=== PATIENT | male | born 1985 | race Caucasian/White ===

== ENCOUNTER 2023-03-29 13:09 | Emergency (ER) | payer OTHER, SELFPAY ==
[2023-03-29 13:54] LABS: #Eosinphils 0.1 10x3/uL (0.0-0.5); #Monocytes 0.5 10x3/uL (0.0-1.1); #Neutrophils 3.6 10x3/uL (1.5-8.4); %Basophils 0.6 % (0.0-2.0); %Eosinophils 1.2 % (0.0-6.0); %Lymphocytes 18.6 % (18.0-47.0); %Monocytes 9.9 % (0.0-10.0); %Neutrophils 69.1 % (40.0-75.0); Hemoglobin 14.4 g/dL (13.5-17.5); Mean Corpuscular HGB CONC 33.9 g/dL (32.0-36.0); Mean Corpuscular Hemoglobin 30.3 pg (27.0-33.0); Mean Corpuscular Volume 89.5 fl (81.2-95.1); Platelet Count 275 10x3/uL (150-450); RBC Distribution Width 12.9 % (11.5-14.5); Red Blood Cell (RBC) Count 4.75 10x6/uL (4.32-5.72); White Blood Cell (WBC) Count 5.2 10x3/uL (3.5-10.5)
[2023-03-29 13:59] LABS: ALT (SGPT) 40 U/L (8-55); AST (SGOT) 26 U/L (5-34); Albumin 4.6 g/dL (3.5-5.0); Alkaline Phosphatase 93 U/L (40-110); Anion Gap 13 mmol/L (10-20); BUN (Urea Nitrogen) 13 mg/dL (8.9-20.6); Bilirubin, Total 0.3 mg/dL (0.2-1.2); CK (CPK) 98 U/L (30-200); Calc. Creatinine Clearance 0 mL/min (70-130); Calcium 8.9 mg/dL (7.8-10.44); Carbon Dioxide 24 mmol/L (22-29); Chloride 105 mmol/L (98-107); Estimated GFR 112; Globulin 2.9 g/dL (2.4-3.5); Glucose 98 mg/dL (70-105); Lipase 27 U/L (8-78); Magnesium 2.1 mg/dL (1.6-2.6); Potassium 4.4 mmol/L (3.5-5.1); Protein, Total 7.5 g/dL (6.0-8.3); Sodium 138 mmol/L (136-145)
[2023-03-29] MEDS ORDERED: chlordiazePOXIDE HCl 25 MG CAP ONE (14:08)
[2023-03-29] MEDS ORDERED: Lorazepam 2 MG/ML VIAL ONE (14:09)
== END 2023-03-29 15:20 | disposition home or self-care (01) ==
LOC: CSHERS 13:09
DX: F19.239 Other psychoactive substance dependence with withdrawal, unspecified (principal); R56.9 Unspecified convulsions
CPT/HCPCS: 70450; 80053; 82550; 83605; 83690; 83735; 85025; 93005; 96361; 96374; J2060